=== PATIENT | male | born 1975 | race Caucasian/White ===

== ENCOUNTER 2019-09-25 09:39 | Outpatient (CLI) | payer OTHER ==
--- NOTE | 2019-09-25 10:21 | ULT ---
THYROID ULTRASOUND: HISTORY: Lymphadenopathy. COMPARISON: None. FINDINGS: Thyroid isthmus measures 0.4 cm. Right thyroid lobe measures 2.4 x 2.2 x 4.9 cm. Left thyroid lobe is not visualized. Patient does not commented upon a previous left thyroid lobectom y. Thyroid nodules: There are no nodules in the visualized thyroid gland. Lymph nodes: 0.5 x 1.4 x 0.3 cm left neck lymph node, reported to be level III. Fatty hilum is preser chasity. No significant is uncertain if IMPRESSION:: 1. Nonvisualization left thyroid lobe. Correlate with surgical history. 2. Nonspecific left level III lymph node with preserved fatty hilum. If there is concern, postcontras t soft tissue neck CT is recommended. Transcribed Date/Time: 09/25/2019 10:48 AM
== END 2019-09-25 09:40 | disposition home or self-care (01) ==
LOC: ULT 09:39
PROVIDERS: ATTEND Nurse Practitioner Family
DX: R59.0 Localized enlarged lymph nodes (principal); J98.4 Other disorders of lung
CPT/HCPCS: 76536